=== PATIENT | male | born 2000 | race Two or more races ===

== ENCOUNTER 2023-05-13 12:16 | Emergency (ER) | payer SELFPAY ==
[~2023-05-13] VITALS: Ht 177.8 cm; Wt 70.0 kg
[2023-05-13 12:26] VITALS: O2SAT 100
[2023-05-13] MEDS ORDERED: LIDO1ADH7 TP (13:28)
[2023-05-13] MEDS ORDERED: DICL50TA7 MT (13:28)
[2023-05-13] MEDS ORDERED: ACET-2708 MT (13:28)
[2023-05-13] MEDS ORDERED: KETOROLAC 60MG/2ML VIAL IM ONE (13:30)
[2023-05-13 16:25] VITALS: BP 117/71; PULSE 80; RESP 17; TEMP 98.3
== END 2023-05-13 16:28 | disposition home or self-care (01) ==
LOC: EDBD 12:16 → ER 12:16
DX: M54.2 Cervicalgia (principal); M54.6 Pain in thoracic spine; V49.49XA Driver injured in collision with other motor vehicles in traffic accident, initial encounter; Y93.89 Activity, other specified; Y92.89 Other specified places as the place of occurrence of the external cause; Y99.8 Other external cause status
CPT/HCPCS: 72040; 99284; Z7610; J1885